=== PATIENT | female | born 1945 | race Caucasian/White ===

== ENCOUNTER 2023-09-06 10:08 | Outpatient (OUT) | payer MEDICARE, SELFPAY ==
--- NOTE | 2023-09-06 | XR_ITS ---
The [address] [address] Patient Name: SVETLANA CHACON MRN: [id number] date: 1945 Sex: F Assigned Patient Location: [facility] Current Patient Location: [facility] Accession/Order Number: [id number] Exam Date: 09/06/2023 09:45 Report Date: 09/06/2023 13:21 At the request of: HEMA BUSH Procedure: XR foot RT min 3V PROCEDURE: XR foot RT min 3V COMPARISON: None. HISTORY: RIGTH FOOT PAIN FINDINGS: BONES:No acute fracture or dislocation. Mild degenerative changes most significant at the first metatarsal-phalangeal joint. SOFT TISSUES:Negative. No visible soft tissue swelling. EFFUSION:None visible. OTHER: Negative. XR/XR foot RT min 3V IMPRESSION: Mild degenerative changes Electronically authenticated by: YASMANY CASTILLO Date: 09/06/2023 13:21
== END 2023-09-06 10:09 | disposition home or self-care (01) ==
PROVIDERS: Visit Provider Physician Assistant
DX: M79.671 Pain in right foot (principal)
CPT/HCPCS: 73630